=== PATIENT | male | born 1960 | race Hispanic/Latino ===

== ENCOUNTER 2022-11-08 20:12 | Inpatient (IN) | payer BC ==
[~2022-11-08] VITALS: Ht 165.1 cm; Wt 70.8 kg
[~2022-11-08 20:12] MED LIST: CALCIUM 600 +1 EAC8 PO; EPZICOM TABLET1 EACH PO; LISINOPRIL10 MG PO; NEXIUM40 MG PO; NORVIR100 MG PO; PREZISTA600 MG PO; Z DIFLUCAN PO; Z.0.BACTRIM DS TAB1 PO; Z.0.GLIMEPIRIDE2 MG PO; Z.0.PRAVASTATIN SOD4 PO; Z.0.PREDNISONE20 MG PO; Z.0.ZITHROMAX250 MG PO; Z.1.KOMBIGLYZE XR1 E PO
[2022-11-08 20:40] LABS: BASOPHILS % 0.2 % (0.0-1.0); EOSINOPHILS # (AUTO) 0.1 (0.0-0.4); EOSINOPHILS % 2.4 % (0.0-6.0); HEMATOCRIT 29.7 % (38.2-49.6); HEMOGLOBIN 9.5 g/dL (14.0-18.0); LYMPHOCYTES # (AUTO) 0.4 (1.0-3.2); LYMPHOCYTES % 7.6 % (18.0-39.1); MEAN CORPUSCULAR HEMOGLOBIN 31.7 pg (28-32); MONOCYTES # (AUTO) 0.3 (0.2-0.8); MONOCYTES % 4.5 % (4.4-11.3); NEUTROPHILS # (AUTO) 4.6 (2.1-6.9); PLATELET COUNT 257 x10e3/uL (140-360); RED CELL DISTRIBUTION WIDTH 13.2 % (11.7-14.4)
[2022-11-08] MEDS ORDERED: SODIUM CHLORIDE 0.9% IV SCH (20:45)
[2022-11-08 20:54] LABS: INR 0.88; PARTIAL THROMBOPLASTIN TIME 28.9 seconds (23.8-35.5); PROTHROMBIN TIME 12.1 seconds (11.9-14.5)
[2022-11-08 21:04] LABS: ALBUMIN 2.9 g/dL (3.5-5.0); ALBUMIN/GLOBULIN RATIO 0.6 (0.8-2.0); ANION GAP 16.2 mmol/L (8-16); CALCIUM 8.9 mg/dL (8.4-10.2); CREATININE, SERUM 3.09 mg/dL (0.72-1.25)
[2022-11-08 21:10] LABS: POTASSIUM 6.2 mmol/L (3.5-5.1)
[2022-11-08] MEDS ORDERED: DEXTROSE 50% SYRINGE 50 ML IV STA ×2 (21:21→21:57)
[2022-11-08] MEDS ORDERED: ALBUTEROL SULF 0.083% NEB SOLN 3 ML NEB NEB STA (21:21)
[2022-11-08] MEDS ORDERED: SODIUM BICARBONATE 8.4% 50 ML VIAL IV STA (21:21)
[2022-11-08] MEDS ORDERED: DEXTROSE 50% SYRINGE 50 ML IV ONE (21:26)
[2022-11-08] MEDS ORDERED: CALCIUM GLUCONATE 10% INJ 9.3 MEQ in SODIUM CHLORIDE 0.9% 100 ML IV ONE (21:30)
[2022-11-08] MEDS ORDERED: INSULIN REGULAR, HUMAN 100 UNIT/1 ML IV ONE (21:30)
[2022-11-08] MEDS ORDERED: SODIUM BICARBONATE 8.4% SYRING 50 ML ONE ×2 (21:46→21:47)
[2022-11-08] MEDS ORDERED: SODIUM CHLORIDE 0.9% 100 ML ONE (21:46)
[2022-11-08] MEDS ORDERED: CALCIUM GLUC 1 G/50 ML NACL 50 ML IV ONE ×2 (21:55→21:58)
[2022-11-08] MEDS ORDERED: ALBUTEROL SULF 0.083% NEB SOLN 3 ML NEB ONE (21:58)
[2022-11-08] MEDS: SODIUM CHLORIDE 0.9% 1000ML 1,000 ML IV SCH (22:38)
[2022-11-08] MEDS ORDERED: ONDANSETRON HCL INJ 2MG/ML 2ML 2 MG/ML VIAL IV PRN (23:00)
[2022-11-09] VITALS (18 sets, daily range): BP systolic 96–131; BP diastolic 58–84
[2022-11-09 00:29] LABS: CLARITY,URINE CLEAR (CLEAR); COLOR,URINE YELLOW (YELLOW); KETONES,URINE NEGATIVE (NEGATIVE); LEUKOCYTE ESTERASE ,URINE NEGATIVE (NEGATIVE); NITRITE,URINE NEGATIVE (NEGATIVE); PROTEIN,URINE DIPSTICK 1+ (NEGATIVE); URINE UROBILINOGEN 0.2 mg/dL (0.2 - 1)
[2022-11-09 00:33] LABS: AMORPHOUS SEDIMENT,URINE FEW (FEW); BACTERIA,URINE FEW /HPF; EPITHELIAL CELLS,URINE FEW /LPF; RBC,URINE 0-5 /HPF (0-5); WBC,URINE (MAN) 0-5 /HPF (0-5)
[2022-11-09] MEDS ORDERED: SOD POLYSTYRENE SULFONATE SUSP 15 GM/60 ML BTL PO ONE (03:30)
[2022-11-09] MEDS ORDERED: DEXTROSE 50% SYRINGE 50 ML IV PRN (03:30)
[2022-11-09] MEDS ORDERED: MELATONIN 3 MG TAB PO PRN (03:30)
[2022-11-09] MEDS ORDERED: HYDRALAZINE HCL 20 MG/ML VIAL IV PRN (03:30)
[2022-11-09] MEDS ORDERED: GUAIFENESIN/DEXTROMETHORPHAN LIQD 5 ML UDC PO PRN (03:30)
[2022-11-09] MEDS ORDERED: ALBUTEROL SULF 0.083% NEB SOLN 3 ML NEB NEB PRN (05:00)
[2022-11-09 06:39] LABS: CREATININE,URINE RANDOM 58.9 mg/dL (63-166)
[2022-11-09] MEDS: SODIUM CHLORIDE 0.9% 1000ML 1,000 ML IV SCH ×2 (06:45→17:15)
[2022-11-09] MEDS: INSULIN REGULAR, HUMAN 100 UNIT/1 ML SQ SCH ×3 (07:30→16:30)
[2022-11-09 08:04] LABS: BASOPHILS % 0.2 % (0.0-1.0); EOSINOPHILS # (AUTO) 0.1 (0.0-0.4); EOSINOPHILS % 1.5 % (0.0-6.0); HEMATOCRIT 23.6 % (38.2-49.6); HEMOGLOBIN 7.3 g/dL (14.0-18.0); LYMPHOCYTES # (AUTO) 0.3 (1.0-3.2); LYMPHOCYTES % 6.4 % (18.0-39.1); MEAN CORPUSCULAR HEMOGLOBIN 30.9 pg (28-32); MEAN CORPUSCULAR HGB CONC 30.9 g/dL (31-35); MONOCYTES # (AUTO) 0.3 (0.2-0.8); MONOCYTES % 6.2 % (4.4-11.3); NEUTROPHILS # (AUTO) 3.4 (2.1-6.9); NEUTROPHILS % 83.7 % (38.7-80.0); PLATELET COUNT 215 x10e3/uL (140-360); RED BLOOD COUNT 2.36 x10e6/uL (4.3-5.7)
[2022-11-09 08:38] LABS: ANION GAP 13.4 mmol/L (8-16); CALCIUM 8.2 mg/dL (8.4-10.2); CREATININE, SERUM 2.56 mg/dL (0.72-1.25); POTASSIUM 5.4 mmol/L (3.5-5.1)
[2022-11-09 08:59] LABS: FREE THYROXINE INDEX 1.4414 (1.4-3.8); THYROID STIMULATING HORMONE 1.79 uIU/mL (0.350-4.940)
[2022-11-09] MEDS: MULTIVITAMINS/MINERALS TAB PO SCH (10:20)
[2022-11-09 10:43] LABS: % IRON SATURATION 18 % (15-50); IRON 51 ug/dL (65-175); TOTAL IRON BINDING CAPACITY 283 ug/dL (261-478); TRANSFERRIN 202 mg/dL (174-364)
[2022-11-09] MEDS ORDERED: SODIUM CHLORIDE 0.9% 1000ML 1,000 ML IV SCH (14:00)
[2022-11-09] MEDS: ENOXAPARIN SOD INJ 40 MG/0.4 ML SYR SC SCH (17:15)
[2022-11-09] MEDS: INSULIN LISPRO 100 UNIT/1 ML 3ML VIAL SQ SCH (21:00)
[2022-11-09] MEDS: AZITHROMYCIN 250 MG TAB PO SCH (21:36)
[2022-11-10] VITALS (7 sets, daily range): BP systolic 107–151; BP diastolic 59–83
[2022-11-10] MEDS: SODIUM CHLORIDE 0.9% 1000ML 1,000 ML IV SCH ×3 (04:05→23:57)
[2022-11-10 04:57] LABS: BASOPHILS % 0.2 % (0.0-1.0); EOSINOPHILS # (AUTO) 0.1 (0.0-0.4); EOSINOPHILS % 3.2 % (0.0-6.0); HEMATOCRIT 21.8 % (38.2-49.6); HEMOGLOBIN 7.4 g/dL (14.0-18.0); LYMPHOCYTES # (AUTO) 0.3 (1.0-3.2); LYMPHOCYTES % 6.2 % (18.0-39.1); MEAN CORPUSCULAR HEMOGLOBIN 31.2 pg (28-32); MEAN CORPUSCULAR HGB CONC 33.9 g/dL (31-35); MONOCYTES # (AUTO) 0.2 (0.2-0.8); MONOCYTES % 5.3 % (4.4-11.3); NEUTROPHILS # (AUTO) 3.7 (2.1-6.9); NEUTROPHILS % 83.7 % (38.7-80.0); PLATELET COUNT 220 x10e3/uL (140-360); RED BLOOD COUNT 2.37 x10e6/uL (4.3-5.7); RED CELL DISTRIBUTION WIDTH 13.1 % (11.7-14.4)
[2022-11-10 05:17] LABS: ALBUMIN 2.1 g/dL (3.5-5.0); ANION GAP 12.2 mmol/L (8-16); BILIRUBIN,DIRECT 0.1 mg/dL (0.0-0.5); CALCIUM 7.7 mg/dL (8.4-10.2); CREATININE, SERUM 2.29 mg/dL (0.72-1.25); POTASSIUM 5.2 mmol/L (3.5-5.1)
[2022-11-10] MEDS: INSULIN LISPRO 100 UNIT/1 ML 3ML VIAL SQ SCH ×4 (07:30→21:30)
[2022-11-10] MEDS: MULTIVITAMINS/MINERALS TAB PO SCH (09:08)
[2022-11-10] MEDS ORDERED: ONDANSETRON HCL 4 MG ORAL DISINTEGRATING TAB PO PRN (10:30)
[2022-11-10] MEDS: BACITRACIN ZINC 15 GM OINT TOP SCH (16:45)
[2022-11-10] MEDS: ENOXAPARIN SOD INJ 40 MG/0.4 ML SYR SC SCH (17:00)
[2022-11-10 20:47] LABS: ABG PH 7.35 (7.35-7.45)
[2022-11-10 20:48] LABS: ABG HCO3 13 mmol/L (22-26); ABG PCO2 23 mmHg (35-45); ABG PO2 87 mmHg (80-105); ABG TCO2 14
[2022-11-10] MEDS: AZITHROMYCIN 250 MG TAB PO SCH (21:34)
[2022-11-11] VITALS (8 sets, daily range): BP systolic 113–166; BP diastolic 63–81
[2022-11-11 05:47] LABS: BASOPHILS % 0.2 % (0.0-1.0); EOSINOPHILS # (AUTO) 0.1 (0.0-0.4); EOSINOPHILS % 2.9 % (0.0-6.0); HEMATOCRIT 23.4 % (38.2-49.6); HEMOGLOBIN 7.6 g/dL (14.0-18.0); LYMPHOCYTES # (AUTO) 0.3 (1.0-3.2); LYMPHOCYTES % 7.7 % (18.0-39.1); MEAN CORPUSCULAR HEMOGLOBIN 31.3 pg (28-32); MEAN CORPUSCULAR HGB CONC 32.5 g/dL (31-35); MEAN CORPUSCULAR VOLUME 96.3 fL (81-99); MONOCYTES # (AUTO) 0.2 (0.2-0.8); MONOCYTES % 5.6 % (4.4-11.3); NEUTROPHILS # (AUTO) 3.4 (2.1-6.9); NEUTROPHILS % 81.7 % (38.7-80.0); PLATELET COUNT 237 x10e3/uL (140-360); RED BLOOD COUNT 2.43 x10e6/uL (4.3-5.7)
[2022-11-11 06:15] LABS: ANION GAP 11.6 mmol/L (8-16); CALCIUM 7.8 mg/dL (8.4-10.2); CREATININE, SERUM 2.01 mg/dL (0.72-1.25); PHOSPHORUS 3.2 MG/DL (2.3-4.7); POTASSIUM 4.6 mmol/L (3.5-5.1)
[2022-11-11] MEDS: INSULIN LISPRO 100 UNIT/1 ML 3ML VIAL SQ SCH ×4 (07:30→23:38)
[2022-11-11] MEDS: SODIUM CHLORIDE 0.9% 1000ML 1,000 ML IV SCH (09:35)
[2022-11-11] MEDS: SODIUM BICARBONATE 650 MG TAB PO SCH ×2 (09:35→16:59)
[2022-11-11] MEDS: MULTIVITAMINS/MINERALS TAB PO SCH (09:35)
[2022-11-11] MEDS ORDERED: SODIUM BICARBONATE 8.4% 150 ML in DEXTROSE 5% 1,000 ML IV ONE (14:00)
[2022-11-11] MEDS ORDERED: JANUMET 50-1,01 EACH (14:24)
[2022-11-11] MEDS ORDERED: FLUCONAZOLE100 MG PO (14:24)
[2022-11-11] MEDS ORDERED: VALSARTAN-HCTZ1 EAC1 (14:24)
[2022-11-11] MEDS ORDERED: PIOGLITAZONE HC45 MG PO (14:24)
[2022-11-11] MEDS ORDERED: SPIRONOLACTONE25 MG PO (14:24)
[2022-11-11] MEDS: ENOXAPARIN SOD INJ 40 MG/0.4 ML SYR SC SCH (17:00)
[2022-11-11] MEDS: BACITRACIN ZINC 15 GM OINT TOP SCH (17:02)
[2022-11-11] MEDS: AZITHROMYCIN 250 MG TAB PO SCH (21:08)
[2022-11-12] VITALS (7 sets, daily range): BP systolic 108–124; BP diastolic 53–77
[2022-11-12] MEDS: ACETAMINOPHEN 325 MG TAB PO PRN ×2 (03:00→17:13)
[2022-11-12 06:24] LABS: BASOPHILS % 0.3 % (0.0-1.0); EOSINOPHILS # (AUTO) 0.1 (0.0-0.4); EOSINOPHILS % 3.3 % (0.0-6.0); HEMOGLOBIN 7.2 g/dL (14.0-18.0); LYMPHOCYTES # (AUTO) 0.3 (1.0-3.2); LYMPHOCYTES % 7.5 % (18.0-39.1); MEAN CORPUSCULAR HEMOGLOBIN 31.9 pg (28-32); MEAN CORPUSCULAR HGB CONC 35.8 g/dL (31-35); MONOCYTES # (AUTO) 0.3 (0.2-0.8); NEUTROPHILS # (AUTO) 2.9 (2.1-6.9); NEUTROPHILS % 79.5 % (38.7-80.0); PLATELET COUNT 233 x10e3/uL (140-360); RED BLOOD COUNT 2.26 x10e6/uL (4.3-5.7); RED CELL DISTRIBUTION WIDTH 12.6 % (11.7-14.4)
[2022-11-12 06:43] LABS: HEMATOCRIT 20.1 % (38.2-49.6); MEAN CORPUSCULAR VOLUME 88.9 fL (81-99)
[2022-11-12 06:48] LABS: ANION GAP 13.8 mmol/L (8-16); CALCIUM 7.6 mg/dL (8.4-10.2); CREATININE, SERUM 2.04 mg/dL (0.72-1.25); POTASSIUM 3.8 mmol/L (3.5-5.1)
[2022-11-12] MEDS: INSULIN LISPRO 100 UNIT/1 ML 3ML VIAL SQ SCH ×4 (07:30→21:22)
[2022-11-12] MEDS: MULTIVITAMINS/MINERALS TAB PO SCH (09:12)
[2022-11-12] MEDS: SODIUM BICARBONATE 650 MG TAB PO SCH ×2 (09:12→16:39)
[2022-11-12] MEDS: BACITRACIN ZINC 15 GM OINT TOP SCH (09:12)
[2022-11-12] MEDS: SODIUM CHLORIDE 0.9% 1000ML 1,000 ML IV SCH ×2 (15:41→21:22)
[2022-11-12] MEDS: AZITHROMYCIN 250 MG TAB PO SCH (20:34)
[2022-11-13] VITALS (8 sets, daily range): BP systolic 120–148; BP diastolic 62–79
[2022-11-13 05:57] LABS: BASOPHILS % 0.3 % (0.0-1.0); EOSINOPHILS # (AUTO) 0.1 (0.0-0.4); EOSINOPHILS % 3.8 % (0.0-6.0); LYMPHOCYTES # (AUTO) 0.3 (1.0-3.2); LYMPHOCYTES % 7.8 % (18.0-39.1); MEAN CORPUSCULAR HEMOGLOBIN 31.4 pg (28-32); MEAN CORPUSCULAR HGB CONC 34.7 g/dL (31-35); MEAN CORPUSCULAR VOLUME 90.6 fL (81-99); MONOCYTES # (AUTO) 0.2 (0.2-0.8); MONOCYTES % 5.9 % (4.4-11.3); NEUTROPHILS % 80.6 % (38.7-80.0); PLATELET COUNT 235 x10e3/uL (140-360); RED BLOOD COUNT 2.23 x10e6/uL (4.3-5.7); RED CELL DISTRIBUTION WIDTH 12.9 % (11.7-14.4)
[2022-11-13 05:58] LABS: ANION GAP 13.9 mmol/L (8-16); CALCIUM 7.2 mg/dL (8.4-10.2); CREATININE, SERUM 1.81 mg/dL (0.72-1.25); POTASSIUM 3.9 mmol/L (3.5-5.1)
[2022-11-13 06:03] LABS: HEMATOCRIT 20.2 % (38.2-49.6)
[2022-11-13] MEDS: INSULIN LISPRO 100 UNIT/1 ML 3ML VIAL SQ SCH ×4 (07:30→21:49)
[2022-11-13] MEDS: MULTIVITAMINS/MINERALS TAB PO SCH (08:52)
[2022-11-13] MEDS: BACITRACIN ZINC 15 GM OINT TOP SCH (08:53)
[2022-11-13] MEDS: SODIUM BICARBONATE 650 MG TAB PO SCH ×2 (08:53→16:42)
[2022-11-13] MEDS: SODIUM CHLORIDE 0.9% 1000ML 1,000 ML IV SCH ×2 (11:55→20:33)
[2022-11-13] MEDS ORDERED: SODIUM CHLORIDE 0.9% 250ML 250 ML IV ONE (14:00)
[2022-11-13] MEDS: AZITHROMYCIN 250 MG TAB PO SCH (20:50)
[2022-11-14 01:03] VITALS: BP 116/73
[2022-11-14 05:34] VITALS: BP 135/65
[2022-11-14 05:44] LABS: BASOPHILS % 0.2 % (0.0-1.0); EOSINOPHILS # (AUTO) 0.1 (0.0-0.4); EOSINOPHILS % 2.6 % (0.0-6.0); HEMATOCRIT 25.9 % (38.2-49.6); HEMOGLOBIN 8.6 g/dL (14.0-18.0); LYMPHOCYTES # (AUTO) 0.3 (1.0-3.2); LYMPHOCYTES % 6.6 % (18.0-39.1); MEAN CORPUSCULAR HEMOGLOBIN 30.4 pg (28-32); MEAN CORPUSCULAR HGB CONC 33.2 g/dL (31-35); MEAN CORPUSCULAR VOLUME 91.5 fL (81-99); MONOCYTES # (AUTO) 0.4 (0.2-0.8); MONOCYTES % 7.7 % (4.4-11.3); NEUTROPHILS # (AUTO) 3.7 (2.1-6.9); NEUTROPHILS % 81.4 % (38.7-80.0); PLATELET COUNT 240 x10e3/uL (140-360); RED BLOOD COUNT 2.83 x10e6/uL (4.3-5.7); RED CELL DISTRIBUTION WIDTH 14.1 % (11.7-14.4)
[2022-11-14 05:57] LABS: ANION GAP 12.7 mmol/L (8-16); CALCIUM 7.4 mg/dL (8.4-10.2); CREATININE, SERUM 1.73 mg/dL (0.72-1.25); POTASSIUM 3.7 mmol/L (3.5-5.1)
[2022-11-14] MEDS: INSULIN LISPRO 100 UNIT/1 ML 3ML VIAL SQ SCH ×2 (07:30→11:30)
[2022-11-14 07:51] VITALS: BP 128/67
[2022-11-14 08:44] VITALS: BP 128/67
[2022-11-14] MEDS: BACITRACIN ZINC 15 GM OINT TOP SCH (09:00)
[2022-11-14] MEDS: MULTIVITAMINS/MINERALS TAB PO SCH (09:25)
[2022-11-14] MEDS: SODIUM BICARBONATE 650 MG TAB PO SCH (09:25)
[2022-11-14] MEDS: SODIUM CHLORIDE 0.9% 1000ML 1,000 ML IV SCH (09:26)
[2022-11-14 11:33] VITALS: BP 137/77
[2022-11-14] MEDS ORDERED: ATOVAQUONE750 MG/5 M PO (13:58)
[2022-11-14 15:15] VITALS: BP 129/79
[2022-11-14] MEDS ORDERED: EPOETIN ALFA-EPBX 10,000 UNIT/ML VIAL SC SCH (18:00)
== END 2022-11-14 16:09 | disposition home or self-care (01) | DRG 975 ==
LOC: ER 20:23 → ERHOLD 23:02 → ICU 11-09 02:41 → MED/SURG2 11-09 16:46
PROVIDERS: ADMIT Internal Medicine; ATTEND Internal Medicine
PROC: 30233N1 Transfusion of Nonautologous Red Blood Cells into Peripheral Vein, Percutaneous Approach (ICD-10-PCS; principal; 2022-11-13)
DX: U07.1 COVID-19 (principal); E87.1 Hypo-osmolality and hyponatremia; B20 Human immunodeficiency virus [HIV] disease; J12.82 Pneumonia due to coronavirus disease 2019; N17.9 Acute kidney failure, unspecified; E87.20 Acidosis, unspecified; I95.9 Hypotension, unspecified; E86.1 Hypovolemia; R79.89 Other specified abnormal findings of blood chemistry; R80.9 Proteinuria, unspecified; E11.22 Type 2 diabetes mellitus with diabetic chronic kidney disease; N18.9 Chronic kidney disease, unspecified; I12.9 Hypertensive chronic kidney disease with stage 1 through stage 4 chronic kidney disease, or unspecified chronic kidney disease; R53.81 Other malaise; E83.51 Hypocalcemia; E87.5 Hyperkalemia; E11.649 Type 2 diabetes mellitus with hypoglycemia without coma; R19.7 Diarrhea, unspecified; R00.0 Tachycardia, unspecified; F14.11 Cocaine abuse, in remission; E78.5 Hyperlipidemia, unspecified; Z79.84 Long term (current) use of oral hypoglycemic drugs; Z79.899 Other long term (current) drug therapy; Z79.2 Long term (current) use of antibiotics; Z83.3 Family history of diabetes mellitus; Z87.01 Personal history of pneumonia (recurrent); Z91.199 Patient's noncompliance with other medical treatment and regimen due to unspecified reason
CPT/HCPCS: 36415; 51700; 71045; 76770; 80048; 80053; 80076; 81001; 82533; 82550; 82570; 82805; 82948; 83036; 83540; 83605; 84100; 84165; 84300; 84436; 84443; 84466; 84479; 85025; 85610; 85730; 86361; 86850; 86900; 86920; 87040; 93005; 94640; 94799; 99252; 99284; J0610; J0696; J1650; J1817; J7030; J7050; J7070; J7799; P9016; Q0162

== ENCOUNTER 2023-02-28 15:52 | Inpatient (IN) | payer BC ==
[~2023-02-28] VITALS: Ht 165.1 cm; Wt 70.8 kg
[~2023-02-28 15:52] MED LIST changes: +ATOVAQUONE750 MG/5 M PO; +FLUCONAZOLE100 MG PO; +JANUMET 50-1,01 EACH PO; +PIOGLITAZONE HC45 MG PO; +SPIRONOLACTONE25 MG PO; +VALSARTAN-HCTZ1 EAC1
[2023-02-28] MEDS ORDERED: LACTATED RINGER'S 500 ML IV ONE (16:30)
[2023-02-28] MEDS: NOREPINEPHRINE 8 MG/D5W 250 ML 250 ML IV SCH (16:30)
[2023-02-28] MEDS ORDERED: SODIUM CHLORIDE 0.9% 1000ML 500 ML IV ONE (16:30)
[2023-02-28 16:58] LABS: BASOPHILS % 0.2 % (0.0-1.0); EOSINOPHILS # (AUTO) 0.1 (0.0-0.4); EOSINOPHILS % 1.1 % (0.0-6.0); HEMOGLOBIN 7.4 g/dL (14.0-18.0); LYMPHOCYTES # (AUTO) 0.3 (1.0-3.2); LYMPHOCYTES % 6.1 % (18.0-39.1); MEAN CORPUSCULAR HEMOGLOBIN 31.8 pg (28-32); MEAN CORPUSCULAR HGB CONC 33.6 g/dL (31-35); MEAN CORPUSCULAR VOLUME 94.4 fL (81-99); MONOCYTES # (AUTO) 0.6 (0.2-0.8); MONOCYTES % 10.3 % (4.4-11.3); NEUTROPHILS # (AUTO) 4.4 (2.1-6.9); NEUTROPHILS % 81.2 % (38.7-80.0); PLATELET COUNT 315 x10e3/uL (140-360); RED BLOOD COUNT 2.33 x10e6/uL (4.3-5.7); RED CELL DISTRIBUTION WIDTH 13.2 % (11.7-14.4)
[2023-02-28 17:14] LABS: ALBUMIN 2.8 g/dL (3.5-5.0); ALBUMIN/GLOBULIN RATIO 0.6 (0.8-2.0); ANION GAP 13.9 mmol/L (8-16); CALCIUM 8.4 mg/dL (8.4-10.2); CREATININE, SERUM 3.32 mg/dL (0.72-1.25); POTASSIUM 4.9 mmol/L (3.5-5.1)
[2023-02-28 17:25] LABS: B-TYPE NATRIURETIC PEPTIDE2 32.1 pg/mL (0-100)
[2023-02-28 17:34] LABS: CLARITY,URINE SL CLOUDY (CLEAR); COLOR,URINE YELLOW (YELLOW); KETONES,URINE TRACE (NEGATIVE); LEUKOCYTE ESTERASE ,URINE NEGATIVE (NEGATIVE); NITRITE,URINE NEGATIVE (NEGATIVE); PROTEIN,URINE DIPSTICK 2+ (NEGATIVE); URINE UROBILINOGEN 0.2 mg/dL (0.2 - 1)
[2023-02-28 17:42] LABS: BACTERIA,URINE MODERATE /HPF
[2023-02-28] MEDS ORDERED: SODIUM CHLORIDE FLUSH 10 ML SYR INJ PRN (18:30)
[2023-02-28] MEDS ORDERED: ONDANSETRON HCL INJ 2MG/ML 2ML 2 MG/ML VIAL IV PRN (18:30)
[2023-02-28] MEDS: METHYLPREDNISOLONE SOD SUCC 40 MG/ML VIAL 1ML IV SCH (19:25)
[2023-02-28] MEDS: CEFTRIAXONE 2 GM in SODIUM CHLORIDE 0.9% 100 ML IV SCH (19:25)
[2023-02-28] MEDS ORDERED: AZITHROMYCIN 250 MG TAB PO ONE (19:35)
[2023-02-28] MEDS ORDERED: Morphine 4mg INJECTION 4 MG/ML INJ IV PRN (19:45)
[2023-02-28] MEDS: SULFAMETHOXAZOLE IV SCH (23:36)
[2023-02-28] MEDS: DEXTROSE 5% IV SCH (23:36)
[2023-02-28] MEDS: TRIMETHOPRIM IV SCH (23:36)
[2023-03-01] MEDS ORDERED: DIPHENHYDRAMINE HCL 25 MG CAP PO PRN (01:15)
[2023-03-01] MEDS ORDERED: LIDOCAINE 4% PATCH TP PRN (01:15)
[2023-03-01] MEDS ORDERED: ACETAMINOPHEN 325 MG TAB PO PRN (01:15)
[2023-03-01] MEDS ORDERED: DEXTROSE 5%/0.9% SOD CHL 1,000 ML IV SCH (01:15)
[2023-03-01] MEDS ORDERED: ALBUTEROL SULF 0.083% NEB SOLN 3 ML NEB NEB PRN (01:15)
[2023-03-01] MEDS ORDERED: BENZONATATE 100 MG CAP PO PRN (01:15)
[2023-03-01] MEDS ORDERED: DEXTROSE 50% SYRINGE 50 ML IV PRN ×2 (01:15)
[2023-03-01] MEDS ORDERED: PRAVASTATIN 20 MG TAB PO SCH (01:15)
[2023-03-01] MEDS ORDERED: MELATONIN 5 MG TABLET PO PRN (01:15)
[2023-03-01] MEDS ORDERED: SIMETHICONE 80 MG CHEW PO PRN (01:15)
[2023-03-01] MEDS ORDERED: POTASSIUM CHLORIDE 20 MEQ TAB CR PO PRN (01:15)
[2023-03-01] MEDS ORDERED: HYDRALAZINE HCL 20 MG/ML VIAL IV PRN (01:15)
[2023-03-01] MEDS ORDERED: DOCUSATE SODIUM 100 MG CAP PO PRN (01:15)
[2023-03-01] MEDS ORDERED: ONDANSETRON HCL INJ 2MG/ML 2ML 2 MG/ML VIAL IV PRN (01:15)
[2023-03-01] MEDS ORDERED: IPRATROPIUM BROMIDE 0.02% 2.5 ML NEB NEB PRN (01:45)
[2023-03-01] MEDS ORDERED: SODIUM CHLORIDE 0.9% 1000ML 1,000 ML ONE (02:05)
[2023-03-01] MEDS ORDERED: SODIUM CHLORIDE 0.9% 1000ML 1,000 ML IV SCH ×2 (03:00→18:00)
[2023-03-01 05:15] LABS: BASOPHILS % 0.2 % (0.0-1.0); HEMATOCRIT 21.6 % (38.2-49.6); HEMOGLOBIN 7.4 g/dL (14.0-18.0); LYMPHOCYTES # (AUTO) 0.2 (1.0-3.2); MEAN CORPUSCULAR HGB CONC 34.3 g/dL (31-35); MEAN CORPUSCULAR VOLUME 93.5 fL (81-99); MONOCYTES # (AUTO) 0.1 (0.2-0.8); MONOCYTES % 2.3 % (4.4-11.3); NEUTROPHILS # (AUTO) 5.7 (2.1-6.9); PLATELET COUNT 288 x10e3/uL (140-360); RED BLOOD COUNT 2.31 x10e6/uL (4.3-5.7); RED CELL DISTRIBUTION WIDTH 12.9 % (11.7-14.4)
[2023-03-01 05:29] LABS: ANION GAP 13.5 mmol/L (8-16); CALCIUM 8.2 mg/dL (8.4-10.2); CREATININE, SERUM 2.81 mg/dL (0.72-1.25); MAGNESIUM 1.5 MG/DL (1.3-2.1); POTASSIUM 5.5 mmol/L (3.5-5.1)
[2023-03-01] MEDS: METHYLPREDNISOLONE SOD SUCC 40 MG/ML VIAL 1ML IV SCH ×2 (05:39→17:39)
[2023-03-01 05:58] LABS: THYROID STIMULATING HORMONE 1.104 uIU/mL (0.350-4.940)
[2023-03-01] MEDS: INSULIN LISPRO 100 UNIT/1 ML 3ML VIAL SQ SCH ×4 (07:14→21:08)
[2023-03-01] MEDS: PANTOPRAZOLE SOD 40 MG TABEC PO SCH (07:30)
[2023-03-01] MEDS ORDERED: FUROSEMIDE INJ 10 MG/ML 2 ML VIAL IV ONE (08:15)
[2023-03-01] MEDS ORDERED: SOD POLYSTYRENE SULFONATE SUSP 15 GM/60 ML BTL PO ONE (08:15)
[2023-03-01] MEDS: SODIUM CHLORIDE 1 GM TAB PO SCH ×2 (09:00→17:37)
[2023-03-01] MEDS ORDERED: VITAMIN D31 GM PO (10:26)
[2023-03-01] MEDS ORDERED: VALSARTAN-HCTZ1 EAC1 PO (10:26)
[2023-03-01] MEDS: NOREPINEPHRINE 8 MG/D5W 250 ML 250 ML IV SCH (16:30)
[2023-03-01] MEDS: SULFAMETHOXAZOLE IV SCH (17:36)
[2023-03-01] MEDS: TRIMETHOPRIM IV SCH (17:36)
[2023-03-01] MEDS: DEXTROSE 5% IV SCH (17:36)
[2023-03-01] MEDS: AZITHROMYCIN 250 MG TAB PO SCH (17:38)
[2023-03-01] MEDS: ENOXAPARIN SOD INJ 40 MG/0.4 ML SYR SC SCH (17:38)
[2023-03-01] MEDS ORDERED: MAGNESIUM SULFATE 2GM/50ML 50 ML IV ONE ×2 (18:00→21:02)
[2023-03-01 18:50] LABS: ABG HCO3 14 mmol/L (22-26); ABG PCO2 24 mmHg (35-45); ABG PH 7.38 (7.35-7.45); ABG PO2 73 mmHg (80-105); ABG TCO2 18
[2023-03-01] MEDS: CEFTRIAXONE 2 GM in SODIUM CHLORIDE 0.9% 100 ML IV SCH (19:29)
[2023-03-01 20:15] VITALS: BP 101/63
[2023-03-01 21:45] VITALS: BP 98/66
[2023-03-01 22:32] VITALS: BP 98/66
[2023-03-01 22:39] VITALS: BP 98/66
[2023-03-02] VITALS (10 sets, daily range): BP systolic 96–104; BP diastolic 60–67
[2023-03-02 04:58] LABS: BASOPHILS % 0.1 % (0.0-1.0); LYMPHOCYTES # (AUTO) 0.3 (1.0-3.2); LYMPHOCYTES % 3.1 % (18.0-39.1); MEAN CORPUSCULAR HEMOGLOBIN 31.5 pg (28-32); MEAN CORPUSCULAR HGB CONC 34.5 g/dL (31-35); MEAN CORPUSCULAR VOLUME 91.3 fL (81-99); MONOCYTES # (AUTO) 0.5 (0.2-0.8); MONOCYTES % 5.6 % (4.4-11.3); NEUTROPHILS # (AUTO) 7.6 (2.1-6.9); NEUTROPHILS % 90.5 % (38.7-80.0); PLATELET COUNT 305 x10e3/uL (140-360); RED BLOOD COUNT 2.19 x10e6/uL (4.3-5.7); RED CELL DISTRIBUTION WIDTH 12.5 % (11.7-14.4)
[2023-03-02 05:02] LABS: HEMOGLOBIN 6.9 g/dL (14.0-18.0)
[2023-03-02 05:11] LABS: ANION GAP 14.8 mmol/L (8-16); CREATININE, SERUM 2.62 mg/dL (0.72-1.25); MAGNESIUM 2.2 MG/DL (1.3-2.1); POTASSIUM 4.8 mmol/L (3.5-5.1)
[2023-03-02] MEDS ORDERED: SODIUM CHLORIDE 0.9% 250ML 250 ML IV ONE (05:30)
[2023-03-02] MEDS: METHYLPREDNISOLONE SOD SUCC 40 MG/ML VIAL 1ML IV SCH ×2 (06:11→17:43)
[2023-03-02] MEDS: PANTOPRAZOLE SOD 40 MG TABEC PO SCH (09:51)
[2023-03-02] MEDS: SODIUM CHLORIDE 1 GM TAB PO SCH ×2 (09:52→17:43)
[2023-03-02] MEDS: INSULIN LISPRO 100 UNIT/1 ML 3ML VIAL SQ SCH ×4 (09:56→21:34)
[2023-03-02 14:52] LABS: HEMATOCRIT 24.3 % (38.2-49.6); HEMOGLOBIN 8.4 g/dL (14.0-18.0)
[2023-03-02] MEDS: TRIMETHOPRIM IV SCH (17:00)
[2023-03-02] MEDS: SULFAMETHOXAZOLE IV SCH (17:00)
[2023-03-02] MEDS: DEXTROSE 5% IV SCH (17:00)
[2023-03-02] MEDS: AZITHROMYCIN 250 MG TAB PO SCH (17:43)
[2023-03-02] MEDS: ENOXAPARIN SOD INJ 40 MG/0.4 ML SYR SC SCH (17:43)
[2023-03-02] MEDS ORDERED: SODIUM CHLORIDE 0.9% 250ML 250 ML ONE (18:20)
[2023-03-02] MEDS: CEFTRIAXONE 2 GM in SODIUM CHLORIDE 0.9% 100 ML IV SCH (18:26)
[2023-03-02] MEDS ORDERED: TRIMETHOPRIM IV SCH (21:00)
[2023-03-02] MEDS ORDERED: SULFAMETHOXAZOLE IV SCH (21:00)
[2023-03-02] MEDS ORDERED: DEXTROSE 5% IV SCH (21:00)
[2023-03-03] VITALS (10 sets, daily range): BP systolic 95–122; BP diastolic 57–73
[2023-03-03 05:17] LABS: ANION GAP 14.1 mmol/L (8-16); CALCIUM 8.1 mg/dL (8.4-10.2); CREATININE, SERUM 2.39 mg/dL (0.72-1.25); POTASSIUM 5.1 mmol/L (3.5-5.1)
[2023-03-03] MEDS: METHYLPREDNISOLONE SOD SUCC 40 MG/ML VIAL 1ML IV SCH ×2 (05:52→17:46)
[2023-03-03] MEDS: PANTOPRAZOLE SOD 40 MG TABEC PO SCH (08:08)
[2023-03-03] MEDS: SODIUM CHLORIDE 1 GM TAB PO SCH ×2 (08:08→15:52)
[2023-03-03] MEDS: INSULIN LISPRO 100 UNIT/1 ML 3ML VIAL SQ SCH ×4 (08:09→20:59)
[2023-03-03] MEDS ORDERED: FUROSEMIDE INJ 10 MG/ML 2 ML VIAL IV ONE (15:15)
[2023-03-03] MEDS: ENOXAPARIN SOD INJ 40 MG/0.4 ML SYR SC SCH (16:00)
[2023-03-03] MEDS ORDERED: SODIUM BICARBONATE 8.4% 50 ML in SODIUM CHLORIDE 0.45% 1,000 ML IV ONE (17:00)
[2023-03-03] MEDS: CEFTRIAXONE 2 GM in SODIUM CHLORIDE 0.9% 100 ML IV SCH (17:46)
[2023-03-03] MEDS: AZITHROMYCIN 250 MG TAB PO SCH (17:46)
[2023-03-03] MEDS ORDERED: PRAVASTATIN 20 MG TAB PO SCH (21:35)
[2023-03-04 00:07] VITALS: BP 102/63
[2023-03-04 04:54] LABS: HEMATOCRIT 25.5 % (38.2-49.6); HEMOGLOBIN 8.8 g/dL (14.0-18.0)
[2023-03-04] MEDS: METHYLPREDNISOLONE SOD SUCC 40 MG/ML VIAL 1ML IV SCH (05:09)
[2023-03-04 05:12] VITALS: BP 104/68
[2023-03-04 05:12] LABS: ANION GAP 12.8 mmol/L (8-16); CALCIUM 8.4 mg/dL (8.4-10.2); CREATININE, SERUM 2.29 mg/dL (0.72-1.25); POTASSIUM 4.8 mmol/L (3.5-5.1)
[2023-03-04 05:35] LABS: POTASSIUM,URINE 17.9 mmol/L
[2023-03-04 08:18] VITALS: BP 125/80
[2023-03-04] MEDS ORDERED: ATOVAQUONE 750 MG/5 ML SUSP PO SCH (09:00)
[2023-03-04] MEDS: SODIUM CHLORIDE 1 GM TAB PO SCH (09:02)
[2023-03-04] MEDS: PANTOPRAZOLE SOD 40 MG TABEC PO SCH (09:02)
[2023-03-04] MEDS: INSULIN LISPRO 100 UNIT/1 ML 3ML VIAL SQ SCH ×2 (09:09→12:39)
[2023-03-04 09:35] VITALS: BP 125/80
[2023-03-04 11:42] VITALS: BP 124/77
[2023-03-04 15:47] VITALS: BP 118/74
== END 2023-03-04 18:10 | disposition home or self-care (01) | DRG 974 ==
LOC: ER 15:56 → ERHOLD 18:27 → ICU 03-01 20:14 → MED/SURG2 03-02 18:07
PROVIDERS: ADMIT Internal Medicine; ATTEND Internal Medicine
PROC: 30233N1 Transfusion of Nonautologous Red Blood Cells into Peripheral Vein, Percutaneous Approach (ICD-10-PCS; principal; 2023-03-02)
DX: A41.9 Sepsis, unspecified organism (principal); R65.21 Severe sepsis with septic shock; B20 Human immunodeficiency virus [HIV] disease; J18.9 Pneumonia, unspecified organism; U07.1 COVID-19; E87.1 Hypo-osmolality and hyponatremia; N17.9 Acute kidney failure, unspecified; E87.20 Acidosis, unspecified; R06.03 Acute respiratory distress; E11.22 Type 2 diabetes mellitus with diabetic chronic kidney disease; N18.9 Chronic kidney disease, unspecified; I12.9 Hypertensive chronic kidney disease with stage 1 through stage 4 chronic kidney disease, or unspecified chronic kidney disease; E78.5 Hyperlipidemia, unspecified; D63.1 Anemia in chronic kidney disease; I51.7 Cardiomegaly; E87.5 Hyperkalemia; E83.42 Hypomagnesemia; K44.9 Diaphragmatic hernia without obstruction or gangrene; E86.0 Dehydration; Z91.148 Patient's other noncompliance with medication regimen for other reason; Z79.84 Long term (current) use of oral hypoglycemic drugs
CPT/HCPCS: 36415; 36600; 71045; 74176; 80048; 80053; 81001; 82805; 82947; 82948; 83036; 83605; 83735; 83880; 83930; 83935; 84100; 84133; 84295; 84300; 84443; 84484; 85014; 85018; 85025; 86850; 86900; 86920; 87040; 87086; 93005; 96361; 96372; 99284; J0696; J1650; J1940; J2270; J2405; J2920; J3475; J7030; J7050; J7060; P9016

== ENCOUNTER 2024-06-18 10:34 | Emergency (ER) | payer SELFPAY ==
[~2024-06-18] VITALS: Ht 165.1 cm; Wt 70.8 kg
[~2024-06-18 10:34] MED LIST changes: +PANTOPRAZOLE SO40 MG PO; +VALSARTAN-HCTZ1 EAC1 PO; +VITAMIN D31 GM PO
[2024-06-18 10:43] VITALS: TEMP 98
[2024-06-18 11:09] LABS: BASOPHILS % 0.5 % (0.0-1.0); EOSINOPHILS # (AUTO) 0.3 (0.0-0.4); EOSINOPHILS % 4.8 % (0.0-6.0); HEMOGLOBIN 9.1 g/dL (14.0-18.0); LYMPHOCYTES # (AUTO) 0.3 (1.0-3.2); MEAN CORPUSCULAR HEMOGLOBIN 32.5 pg (28-32); MEAN CORPUSCULAR HGB CONC 33.7 g/dL (31-35); MEAN CORPUSCULAR VOLUME 96.4 fL (81-99); MONOCYTES # (AUTO) 0.3 (0.2-0.8); MONOCYTES % 4.8 % (4.4-11.3); NEUTROPHILS # (AUTO) 4.8 (2.1-6.9); PLATELET COUNT 172 x10e3/uL (140-360); RED CELL DISTRIBUTION WIDTH 13.5 % (11.7-14.4); WHITE BLOOD COUNT 5.65 x10e3/uL (4.8-10.8)
[2024-06-18] MEDS: SODIUM CHLORIDE 0.9% 1000ML 1,000 ML IV STA (11:11)
[2024-06-18 11:24] LABS: INR 0.96; PROTHROMBIN TIME 13.3 seconds (11.9-14.5)
[2024-06-18 11:34] LABS: ALBUMIN 3.3 g/dL (3.5-5.0); ALBUMIN/GLOBULIN RATIO 0.9 (0.8-2.0); ANION GAP 13.4 mmol/L (8-16); BILIRUBIN,TOTAL 0.5 mg/dL (0.2-1.2); CALCIUM 11.1 mg/dL (8.4-10.2); CREATININE, SERUM 1.97 mg/dL (0.72-1.25); MAGNESIUM 1.2 MG/DL (1.3-2.1); POTASSIUM 4.4 mmol/L (3.5-5.1)
[2024-06-18 11:40] LABS: TROPONIN I 0.016 ng/mL (0-0.300)
[2024-06-18] MEDS: MAGNESIUM SULF 1GRAM/DEXTROSE 100 ML IV ONE (12:33)
[2024-06-18 12:35] LABS: CLARITY,URINE CLEAR (CLEAR); COLOR,URINE YELLOW (YELLOW); GLUCOSE, URINE NEGATIVE (NEGATIVE); KETONES,URINE NEGATIVE (NEGATIVE); LEUKOCYTE ESTERASE ,URINE NEGATIVE (NEGATIVE); NITRITE,URINE NEGATIVE (NEGATIVE); PH,URINE 6 (5 - 7); PROTEIN,URINE DIPSTICK 2+ (NEGATIVE); URINE UROBILINOGEN 0.2 mg/dL (0.2 - 1)
[2024-06-18 12:36] LABS: BILIRUBIN,URINE NEGATIVE (NEGATIVE)
[2024-06-18 12:45] VITALS: PULSE 57; RESP 16
[2024-06-18 12:45] LABS: BACTERIA,URINE FEW /HPF; WBC,URINE (MAN) 0-5 /HPF (0-5)
[2024-06-18 13:34] VITALS: BP 140/77; PULSE 60; RESP 16; O2SAT 98
== END 2024-06-18 13:32 | disposition home or self-care (01) ==
LOC: ER 10:41
DX: R53.1 Weakness (principal); B20 Human immunodeficiency virus [HIV] disease; E83.52 Hypercalcemia; I12.9 Hypertensive chronic kidney disease with stage 1 through stage 4 chronic kidney disease, or unspecified chronic kidney disease; E11.22 Type 2 diabetes mellitus with diabetic chronic kidney disease; E11.65 Type 2 diabetes mellitus with hyperglycemia; N18.9 Chronic kidney disease, unspecified; E78.5 Hyperlipidemia, unspecified; Z11.52 Encounter for screening for COVID-19; R94.31 Abnormal electrocardiogram [ECG] [EKG]
CPT/HCPCS: 36415; 70450; 71045; 80053; 81001; 82550; 83735; 84484; 85025; 85610; 85730; 87040; 87086; 87400; 93005; 99284; J3475; J7030; U0002